=== PATIENT | female | born 1995 | race Caucasian/White ===

== ENCOUNTER 2023-11-13 11:22 | Outpatient (AMB) | payer OTHER, SELFPAY ==
--- NOTE | 2023-11-13 11:41 | AM.OFFWIN_ITS ---
Intake Vital Signs 11/13/23 11:45 Weight 214 lb BP 130/90 H Blood Pressure Location Rt brachial Position Sitting Pulse 72 Pulse Source Pulse Oximeter Pulse Oximetry (%) 98 Oxygen Delivery Method Room Air Intake Visit Reasons: [employer] WC Rt knee Injury Intake Note: Patient here for right knee injury, she states she was bending down on the floor at work and when she stood up she heard a pop . Patient Tobacco Use Status: Never used Tobacco Allergies No Known Allergies Allergy (Verified 11/13/23 11:45) Do you need a note to return to daycare/school/sports/work: Yes HPI HPI Comments History of Present Illness Details This is a 28-year-old female who presented to the walk-in clinic today complaining of right knee pain. Patient states she was at work and bent over to pick something up and felt a ?pop? in her right knee upon standing up. Since then, patient has been complaining of lateral pain as well as knee swelling. She states the pain is worse with extension of the knee. She reports mild numbness going down her bravo. She does have a history of a meniscal repair. [facility] Social History Patient Tobacco Use Status: Never used Tobacco Review of Systems Const All systems reviewed & are unremarkable except as noted in HPI and below Reports no additional complaints Eyes Reports no additional complaints ENT Reports no additional complaints Card Reports no additional complaints Resp Reports no additional complaints GI Reports no additional complaints Reports no additional complaints Musc Reports no additional complaints Skin/Breast Reports system reviewed and no additional complaints, except as documented Neuro Reports no additional complaints Psych Reports no additional complaints Endo Reports no additional complaints Luis/Lymph Reports no additional complaints Aller/Immun Reports no additional complaints Physical Exam Vital Signs: Last Vital Signs Pulse 72 11/13/23 11:45 BP 130/90 H 11/13/23 11:45 Pulse Ox 98 11/13/23 11:45 Oxygen Delivery Method Room Air 11/13/23 11:45 Const Other: Vital signs reviewed. Constitutional: Non-toxic appearing. No acute distress. Well-developed and well-nourished. HEENT: Normocephalic and atraumatic. Skin: Warm and dry. No rashes or lesions noted. Neck: Full and painless range of motion. No cervical lymphadenopathy. Cardio: Regular rate. No lower extremity edema. No JVD. Pulmonary: No respiratory distress. No accessory muscle usage. Gastrointestinal: Soft, nontender, and nondistended in all 4 quadrants. Musculoskeletal: There is mild swelling and effusion of the right knee diffusely. Patient has tenderness to palpation of the lateral and medial joint lines of the right knee. No focal/bony tenderness to palpation. She has painful range of motion with flexion/extension of the right knee. Neuro: Alert and oriented x4. Cranial nerves 2-12 grossly intact. No focal deficits appreciated. Psych: Normal mood and affect. Assessment & Plan Assessment & Plan (1) Muscle strain of right knee: Code(s): S86.911A - Strain of unspecified muscle(s) and tendon(s) at lower leg level, right leg, initial encounter Plan This is a 28-year-old female who presented to the walk-in clinic complaining of right knee pain/swelling following an injury that occurred yesterday. Differential diagnoses includes sprain/strain versus fracture versus meniscal tear. An x-ray of the right knee was obtained, which was negative for acute bony abnormality. Patient was given a knee brace as well as an orthopedic referral for further evaluation with possible MRI to evaluate for ligamentous/tendinous or meniscal injury. Recommended rest/activity modification, ice to the area, elevation of the extremity, and continue with acetaminophen/ibuprofen for pain management as long as patient has no medical contraindications. Patient verbalized understanding and is agreeable with the plan. Orders: Referrals Orthopedics Referral S89.92XA - Unspecified injury of left lower leg, initial encounter Coding Level of Care Code New Pt Level 3 (70232) Diagnoses Muscle strain of right knee S86.911A
[2023-11-13 11:45] VITALS: BP 130/90; PULSE 72; O2SAT 98
== END 2023-11-13 16:09 | disposition home or self-care (01) ==
PROVIDERS: PCP Internal Medicine; Visit Provider Physician Assistant Medical
DX: S86.911A Strain of unspecified muscle(s) and tendon(s) at lower leg level, right leg, initial encounter (principal)
CPT/HCPCS: 99203

== ENCOUNTER 2023-11-13 12:27 | Outpatient (REF) | payer OTHER, SELFPAY ==
--- NOTE | ~2023-11-13 | XR_ITS ---
EXAMINATION: XR KNEE, RIGHT CLINICAL INFORMATION: Right knee pain. COMPARISON: None available. TECHNIQUE: Four views of the right knee. FINDINGS: No fracture or joint effusion. Alignment is anatomic. Joint spaces are maintained. No abnormal soft tissue calcification. XR/XR knee RT 4V IMPRESSION: Normal right knee.
== END 2023-11-13 12:28 | disposition home or self-care (01) ==
LOC: HO.HMGCX 12:27
PROVIDERS: Visit Provider Physician Assistant Medical
DX: M25.561 Pain in right knee (principal)
CPT/HCPCS: 73564

== ENCOUNTER 2023-11-19 13:56 | Outpatient (AMB) | payer OTHER, SELFPAY ==
--- NOTE | 2023-11-19 14:23 | A.OFFVIS_ITS ---
Intake Vital Signs 11/19/23 14:25 Height 5 ft 9.5 in Weight 315 lb BMI 45.8 Intake Visit Reasons: New Pt - Right Knee WC Injury Intake Note: Humble is a 28 year old female who presents today as a new patient with complaints of right knee pain. 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 She felt pain and had a slight limp but carried on working, she then was pushing a heavy food cart (~150lbs) and pressed off the right leg while on uneven ground. This increased her pain. The day after injury she was seen at the [facility] [place], where she was given a brace. She was also given a note returning her to work until her visit today. Hx of Meniscus repair , she was told that the tear was near the root and she would need to be cautious. Allergies No Known Allergies Allergy (Verified 11/19/23 14:31) HPI New Pt - Right Knee WC Injury HPI Details This is a 28 yo F with an ~ 2-year history of right menical repair. She describes a repair at or near the [facility]. She states she was doing well until this work related injury for which she presents today. 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 She felt pain and had a slight limp but carried on working, she then was pushing a heavy food cart (~150lbs) and pressed off the right leg while on uneven ground. This increased her pain. She now has painful medial sided pain with activity. [facility] Surgical History (Updated 11/19/23 @ 14:31 by Jo Lopez CMA) History of right knee surgery (~2014) Social History Patient Tobacco Use Status: Never used Tobacco Physical Exam Vital Signs: BMI result Body Mass Index 45.8 Const General: cooperative, healthy appearing, no acute distress, well developed and alert HEENT Head: Yes normal to inspection, Yes normocephalic and Yes atraumatic Mouth: moist mucous membranes Eyes General: appearance normal, both eyes and all related structures EOM: EOMs intact bilaterally Chest Other: no audible wheezing. Resp Other: No audible wheezing Effort & Inspection: normal respiratory effort Back/Spine/Pelvis Cervical Spine: normal cervical lordosis Skin General skin exam: no rashes or lesions noted Neuro General: no focal motor deficits Extrem Other: Right knee with no effusion + medial Steinmen's TTP medial joint line Stable to varus and valgus stress Psych Appearance: grossly normal and well kempt Mental Status: mental status grossly normal Speech and movement: Normal speech and movement present Affect: normal affect Attitude: cooperative Results Reviewed Results Reviewed: I personally reviewed relevant radiographs. Nl right knee radiographs Assessment & Plan Assessment & Plan (1) Derangement of unspecified medial meniscus due to old tear or injury, unspecified knee: Code(s): M23.205 - Derangement of unspecified medial meniscus due to old tear or injury, unspecified knee Plan: This is a 28 yo F with a history of prior meniscal repair who sustained a twisting injury at work and hears a pop. She has since been unable to return to her prior level of activity and has pain with twisting. I recommend MRI to assess. She should remain out of work until further notice. I ordered an MRI today. She will return to see me after that is complete. (2) Right knee injury: Code(s): S89.91XA - Unspecified injury of right lower leg, initial encounter Plan Diagnosis #1: Derangement of unspecified medial meniscus due to old tear or injury, unspecified knee ICD 10 #1: M23.?205 Diagnosis#2: Internal Derangement of the Right Knee ICD 10 #2: M23.91 MRI Out of work Orders: Orders MR knee RT wo con Today M23.205 - Derangement of unspecified medial meniscus due to old tear or injury, unspecified knee, S89.91XA - Unspecified injury of right lower leg, initial encounter Coding Level of Care Code New Pt Level 4 (92366) Diagnoses Derangement of unspecified medial meniscus due to old tear or injury, unspecified knee M23.205 Right knee injury S89.91XA
[2023-11-19 14:25] VITALS: BMI 45.8
== END 2023-11-19 15:04 | disposition home or self-care (01) ==
PROVIDERS: PCP Internal Medicine; Visit Provider Orthopaedic Surgery
DX: M23.200 Derangement of unspecified lateral meniscus due to old tear or injury, right knee (principal); S89.91XA Unspecified injury of right lower leg, initial encounter
CPT/HCPCS: 99203

== ENCOUNTER → 2023-11-19 13:56 | Outpatient (BNVA) | payer OTHER, SELFPAY | PROVIDERS: PCP Internal Medicine; Visit Provider Orthopaedic Surgery | DX: M23.203 Derangement of unspecified medial meniscus due to old tear or injury, right knee (principal); S89.91XA Unspecified injury of right lower leg, initial encounter; Z98.890 Other specified postprocedural states; X58.XXXA Exposure to other specified factors, initial encounter; Y93.9 Activity, unspecified; Y92.9 Unspecified place or not applicable; Y99.0 Civilian activity done for income or pay | CPT/HCPCS: 99202 ==

== ENCOUNTER → 2023-12-10 14:13 | Outpatient (BNVA) | payer OTHER, SELFPAY | PROVIDERS: PCP Internal Medicine; Visit Provider Orthopaedic Surgery ==

== ENCOUNTER 2023-12-10 19:39 | Outpatient (REF) | payer OTHER, SELFPAY ==
--- NOTE | ~2023-12-10 | MR_ITS ---
EXAMINATION: MR KNEE WITHOUT CONTRAST, RIGHT CLINICAL INFORMATION: Injury of right lower leg. COMPARISON: X-ray of right knee November 13, 2023. TECHNIQUE: MRI of the knee without contrast was performed using routine sequences on a high-field scanner. FINDINGS: MENISCI: Medial Meniscus: Intact. Lateral Meniscus: Intact. LIGAMENTS: Cruciate: Intact. Collateral: Intact. EXTENSOR MECHANISM: Intact. ARTICULAR CARTILAGE/BONE: Patellofemoral Compartment: Normal. Medial Compartment: Minimal subchondral edema in the lateral weightbearing medial femoral condyle. Overlying cartilage intact. Findings could reflect subtle bone contusion Lateral Compartment: Normal. JOINT FLUID AND BURSAE: Normal. MR/MR knee RT wo con IMPRESSION: Possible subtle bone contusion in the medial femoral condyle.
== END 2023-12-10 19:40 | disposition home or self-care (01) ==
LOC: HO.MRI 19:39
PROVIDERS: PCP Internal Medicine; Visit Provider Orthopaedic Surgery
DX: S89.91XA Unspecified injury of right lower leg, initial encounter (principal); M23.205 Derangement of unspecified medial meniscus due to old tear or injury, unspecified knee
CPT/HCPCS: 73721

== ENCOUNTER 2023-12-21 13:22 | Outpatient (AMB) | payer OTHER, SELFPAY ==
--- NOTE | 2023-12-21 13:26 | A.OFFVIS_ITS ---
Vital Signs 12/21/23 13:29 Height 5 ft 9.5 in Weight 315 lb BMI 45.8 Intake Visit Reasons: OV - Right Knee MRI Review Intake Note: Mireille is a 28 year old female who presents today for an MRI review of her right knee. MRI done 12/10/23: IMPRESSION: Possible subtle bone contusion in the medial femoral condyle. Allergies No Known Allergies Allergy (Verified 12/21/23 13:31) HPI HPI OV - Right Knee MRI Review: Details: Mireille is a 28 year old female who presents today for an MRI review of her right knee. She still describes discomfort but it is improving. COUNTS INCLUDE 234 BEDS AT THE [facility] Surgical History History of right knee surgery (~2014) Social History Patient Tobacco Use Status: Never used Tobacco Physical Exam Vital Signs: BMI result Body Mass Index 45.8 Extrem Other: No effussion TTP medial compartment, improved from prior Neg Steinmen's Full ROM Results Reviewed Results Reviewed: I personally reviewed the MR images. MRI done 12/10/23: IMPRESSION: Possible subtle bone contusion in the medial femoral condyle. Otherwise unremarkable Assessment & Plan Assessment & Plan (1) Contusion of bone: Code(s): T14.8XXA - Other injury of unspecified body region, initial encounter Category: Medical Plan: Bone contusion right knee. She is improving but she is still not ready for [employer] work. She may return to sedentary work. f/u 6 weeks Coding Level of Care Code Est Pt Level 4 (75391) Diagnoses Contusion of bone T14.8XXA
[2023-12-21 13:29] VITALS: BMI 45.8
== END 2023-12-21 13:48 | disposition home or self-care (01) ==
LOC: HO.HOS 13:23
PROVIDERS: PCP Internal Medicine; Visit Provider Orthopaedic Surgery
DX: S80.01XA Contusion of right knee, initial encounter (principal); T14.8XXA Other injury of unspecified body region, initial encounter
CPT/HCPCS: 99213

== ENCOUNTER → 2023-12-21 13:23 | Outpatient (BNVA) | payer OTHER, SELFPAY | PROVIDERS: PCP Internal Medicine; Visit Provider Orthopaedic Surgery | DX: S80.01XA Contusion of right knee, initial encounter (principal) | CPT/HCPCS: 99212 ==

== ENCOUNTER 2024-02-01 11:55 | Outpatient (AMB) | payer OTHER, SELFPAY ==
--- NOTE | 2024-02-01 12:07 | MHC.OFFVIS ---
Intake Visit Reasons: OV-right knee follow up Allergies No Known Allergies Allergy (Verified 12/21/23 13:31) HPI HPI OV-right knee follow up: Details: Mireille is a 28 year old female who presents today for a follow up of her right knee bone contusion. 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 Patient reports that she is doing well, she has some pain with prolonged walking (2hrs) and certain movements. When up for long periods of time the knee is swelling but she utilized ice which helps. [facility] Surgical History History of right knee surgery (~2014) Social History Patient Tobacco Use Status: Never used Tobacco Physical Exam Extrem Other: No effussion TTP medial compartment, improved from prior Neg Steinmen's Full ROM Assessment & Plan Assessment & Plan (1) Contusion of bone: Code(s): T14.8XXA - Other injury of unspecified body region, initial encounter Category: Medical Plan: Improving. May return to work without restrictions. Coding Level of Care Code Est Pt Level 3 (12710) Diagnoses Contusion of bone T14.8XXA
== END 2024-02-01 12:17 | disposition home or self-care (01) ==
PROVIDERS: PCP Internal Medicine; Visit Provider Orthopaedic Surgery
DX: T14.8XXA Other injury of unspecified body region, initial encounter (principal)
CPT/HCPCS: 99212

== ENCOUNTER → 2024-02-01 11:55 | Outpatient (BNVA) | payer OTHER, SELFPAY | PROVIDERS: PCP Internal Medicine; Visit Provider Orthopaedic Surgery | DX: S80.01XA Contusion of right knee, initial encounter (principal); X58.XXXA Exposure to other specified factors, initial encounter; Y93.9 Activity, unspecified; Y92.9 Unspecified place or not applicable; Y99.9 Unspecified external cause status | CPT/HCPCS: 99212 ==

== ENCOUNTER 2024-02-15 10:19 | Outpatient (AMB) | payer OTHER, SELFPAY ==
[2024-02-15 10:19] VITALS: BP 110/70; PULSE 107; TEMP 36.1; O2SAT 98; BMI 46.6
--- NOTE | 2024-02-15 10:19 | AM.OFFWIN_ITS ---
Intake Vital Signs 02/15/24 10:19 Height 5 ft 9.5 in Weight 320 lb BMI 46.6 BP 110/70 Blood Pressure Location Lt brachial Position Sitting Pulse 107 H Pulse Source Pulse Oximeter Temp 97.0 F Temp Source Temporal Artery Scan Pulse Oximetry (%) 98 Oxygen Delivery Method Room Air Intake Visit Reasons: EP Knee pain Intake Note: pt is here today for knee pain started thursday Patient Tobacco Use Status: Never used Tobacco Allergies No Known Allergies Allergy (Verified 02/15/24 10:35) Do you need a note to return to daycare/school/sports/work: Yes HPI HPI Comments History of Present Illness Details Patient is a 28-year-old female complaining of left knee pain x2 days. She states she might have hyperextended it on Thursday; she denies any injury. She states she can hear a pop now and then and it is definitely swollen. She has a history of a meniscus tear in her right knee but has never injured her left knee. She has been putting ice on it with some relief. She is able to walk on it although gingerly. [facility] Surgical History History of right knee surgery (~2014) Social History Patient Tobacco Use Status: Never used Tobacco Review of Systems Const All systems reviewed & are unremarkable except as noted in HPI and below Physical Exam Vital Signs: Last Vital Signs Temp 97.0 F 02/15/24 10:19 Pulse 107 H 02/15/24 10:19 BP 110/70 02/15/24 10:19 Pulse Ox 98 02/15/24 10:19 Oxygen Delivery Method Room Air 02/15/24 10:19 BMI result Body Mass Index 46.6 Const General: cooperative, healthy appearing, comfortable, no acute distress and well developed Orientation/consciousness: patient oriented x3 Limitations: no limitations Eyes General: appearance normal, both eyes and all related structures Resp Effort & Inspection: normal respiratory effort and able to speak in complete sentences Neuro General: patient oriented x3 Extrem Left lower extremity: knee Details: tenderness, swelling, normal ROM (With pain) and knee ligament exam normal (Difficult to test as patient was in pain) Details: anterior drawer test normal, posterior drawer test normal, valgus stress test normal and varus stress test normal; no abrasions, no lacerations, no ecchymosis, no crepitus, no deformity and no unusual warmth Assessment & Plan Assessment & Plan (1) Left lateral knee pain: Code(s): M25.562 - Pain in left knee Plan: Knee x-ray negative for fracture, only showed an effusion. Likely that and ligament issue causing her pain, we will send referral to Orthopedics; also placed in a knee brace and gave her crutches. Plan see above Orders: Referrals Orthopedics Referral M25.562 - Pain in left knee Coding Level of Care Code Est Pt Level 4 (57720) Diagnoses Left lateral knee pain M25.562
== END 2024-02-15 11:25 | disposition home or self-care (01) ==
PROVIDERS: PCP Internal Medicine; Visit Provider Physician Assistant
DX: M25.562 Pain in left knee (principal); S83.502A Sprain of unspecified cruciate ligament of left knee, initial encounter
CPT/HCPCS: 99213

== ENCOUNTER 2024-02-15 11:26 | Outpatient (REF) | payer OTHER, SELFPAY ==
--- NOTE | ~2024-02-15 | XR_ITS ---
EXAMINATION: XR KNEE, LEFT CLINICAL INFORMATION: Pain of left knee COMPARISON: None available. TECHNIQUE: Four views of the left knee. FINDINGS: Bones have normal alignment and joint spaces are maintained. No arthritic deformity. No fracture or subluxation. There appears to be mild fluid distention of the suprapatellar compartment of the knee joint. No intra-articular osteochondral body. XR/XR knee LT 4V IMPRESSION: Nonspecific knee joint effusion. Otherwise, soft tissues, bones and joints are unremarkable.
== END 2024-02-15 11:27 | disposition home or self-care (01) ==
LOC: HO.HMGCX 11:26
PROVIDERS: PCP Internal Medicine; Visit Provider Physician Assistant
DX: M25.562 Pain in left knee (principal)
CPT/HCPCS: 73564

== ENCOUNTER 2024-02-19 10:06 | Outpatient (AMB) | payer OTHER, SELFPAY ==
[2024-02-19 10:07] VITALS: BP 118/72; PULSE 143; TEMP 36.4; O2SAT 98; BMI 45.7
--- NOTE | 2024-02-19 10:07 | AM.OFFWIN_ITS ---
Intake Vital Signs 3 02/19/24 10:07 02/19/24 10:26 Height 5 ft 9.5 in Weight 314 lb BMI 45.7 BP 118/72 Blood Pressure Location Lt brachial Position Sitting Pulse 143 H 104 H Pulse Source Pulse Oximeter Temp 97.6 F Temp Source Temporal Artery Scan Pulse Oximetry (%) 98 Oxygen Delivery Method Room Air Intake Visit Reasons: EP-Left Knee pain/swelling Intake Note: pt is here today for lft knee pain swelling started thursday Patient Tobacco Use Status: Never used Tobacco Allergies No Known Allergies Allergy (Verified 02/19/24 10:12) Medication List - Last Reconciled 02/19/24 by Lyric Dow MD No Known Home Meds Do you need a note to return to daycare/school/sports/work: Yes HPI EP-Left Knee pain/swelling 2 HPI0 Details Patient is 28-year-old morbidly obese patient came in today to be evaluated for pain left knee Reviewing her chart I see that she had pain in her right knee early this year, and had MRI of right knee done through orthopedic Which showed contusion of bone. She was evaluated for this problem on of this month and had x-ray done Left knee x-ray done on showed Nonspecific knee joint effusion. Otherwise, soft tissues, bones and joints are unremarkable. 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 Letter provided For pain she is currently taking ibuprofen and Tylenol. COUNTS INCLUDE 234 BEDS AT THE [facility] Surgical History History of right knee surgery (~2014) Social History Patient Tobacco Use Status: Never used Tobacco Review of Systems Const All systems reviewed & are unremarkable except as noted in HPI and below Physical Exam Vital Signs: Last Vital Signs Temp 97.6 F 06/21/24 10:07 Pulse 143 H 02/19/24 10:07 BP 118/72 02/19/24 10:07 Pulse Ox 98 02/19/24 10:07 Oxygen Delivery Method Room Air 02/19/24 10:07 BMI result Body Mass Index 45.7 Const General: no acute distress Orientation/consciousness: patient oriented x3 Eyes General: appearance normal, both eyes and all related structures Resp Effort & Inspection: normal respiratory effort and able to speak in complete sentences Neuro General: patient oriented x3 Extrem Elbow/forearm/wrist images: 2 1. Limited range of motion secondary to pain, knee brace on, knee swelling present Psych Mental Status: mental status grossly normal Assessment & Plan Assessment & Plan (1) Effusion, left knee: Code(s): M25.462 - Effusion, left knee (2) Left lateral knee pain: Code(s): M25.562 - Pain in left knee (3) Restricted work performance: Code(s): Z56.89 - Other problems related to employment Plan Patient is 28-year-old morbidly obese patient came in today to be evaluated for pain left knee Reviewing her chart I see that she had pain in her right knee early this year, and had MRI of right knee done through orthopedic Which showed contusion of bone. She was evaluated for this problem on of this month and had x-ray done Left knee x-ray done on showed Nonspecific knee joint effusion. Otherwise, soft tissues, bones and joints are unremarkable. 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 Letter provided For pain she is currently taking ibuprofen and Tylenol. Coding Level of Care Code Est Pt Level 4 (92852) Diagnoses Effusion, left knee M25.462 Left lateral knee pain M25.562 Restricted work performance Z56.89
[2024-02-19 10:26] VITALS: PULSE 104
== END 2024-02-19 10:58 | disposition home or self-care (01) ==
PROVIDERS: PCP Internal Medicine; Visit Provider Internal Medicine
DX: M25.462 Effusion, left knee (principal); M25.562 Pain in left knee; Z56.89 Other problems related to employment
CPT/HCPCS: 99214

== ENCOUNTER 2024-03-07 10:02 | Outpatient (AMB) | payer OTHER, SELFPAY ==
[2024-03-07 10:03] VITALS: BMI 44.8
--- NOTE | 2024-03-07 10:03 | A.OFFVIS_ITS ---
Vital Signs 03/07/24 10:03 Height 5 ft 9.5 in Weight 308 lb BMI 44.8 Intake Visit Reasons: Newprob-Left knee pain Intake Note: Mireille is a 29 year old female who presents today for a new problem visit with complaints of left knee pain. Patient reports on 02/13/24 she was pushing a cart that is 250 plus lbs into an elevator hyper extended her leg, immediate pain and swelling. She kept working her shift because there was no one she could report the incident to and woke up the next day unable to bear weight on the left knee. She worked her next shift limping on the left leg but she was elevating and icing it while working. on 02/15/24 she [place] [facility] [place] took x[place], gave her crutches, a knee brace and advised her to follow up with Orthopedics. She returned to work on 03/01/24 with no pushing heavy carts as a restriction, it seemed fine at first but the pain and swelling gradually worsened. She expresses her knee has been swollen since the incident and noticed today it is starting to go down. She has tried ice, ibuprofen, and elevation with minimal relief and minimal swelling. She describes popping in her patella tendon and noticed for the first 2 and a half weeks she was unable to flex and extended fully as well as numbness and tingling with palpitation in the upper anterior aspect of her knee where her swelling is mainly occurring. She is having most tension when she is on the balls of her feet with standing, ambulation and has inability to sit down with legs crossed. Allergies No Known Allergies Allergy (Verified 03/07/24 10:13) HPI HPI Newprob-Left knee pain: Details: Mireille is a 29 year old female who presents today for a new problem visit with complaints of left knee pain. Patient reports on 02/13/24 she was pushing a cart that is 250 plus lbs into an elevator hyper extended her leg, immediate pain and swelling. She kept working her shift because there was no one she could report the incident to and woke up the next day unable to bear weight on the left knee. She worked her next shift limping on the left leg but she was elevating and icing it while working. on 02/15/24 she was [place] [facility] [place] where they took x-rays, gave her crutches, a knee brace and advised her to follow up with Orthopedics. She returned to work on 03/01/24 with no pushing heavy carts as a restriction, it seemed fine at first but the pain and swelling gradually worsened. She expresses her knee has been swollen since the incident and noticed today it is starting to go down. She has tried ice, ibuprofen, and elevation with minimal relief and minimal swelling. She describes popping in her patella tendon and noticed for the first 2 and a half weeks she was unable to flex and extended fully as well as numbness and tingling with palpitation in the upper anterior aspect of her knee where her swelling is mainly occurring. She is having most tension when she is on the balls of her feet with standing, ambulation and has inability to sit down with legs crossed. [facility] Surgical History History of right knee surgery (~2014) Social History Patient Tobacco Use Status: Never used Tobacco Current occupational status: employed Current occupation: [employer] Physical Exam Vital Signs: BMI result Body Mass Index 44.8 Extrem Other: left knee with retropatellar TTP and no effusion. + step down test Assessment & Plan Assessment & Plan (1) Patellofemoral joint pain: Code(s): M25.569 - Pain in unspecified knee Category: Medical Plan: Left knee PF pain improving. PT, Sleeve, NSAIDs. Will modify activity at work. Coding Level of Care Code Est Pt Level 3 (79557) Diagnoses Patellofemoral joint pain M25.569
== END 2024-03-07 10:42 | disposition home or self-care (01) ==
PROVIDERS: PCP Internal Medicine; Visit Provider Orthopaedic Surgery
DX: M25.562 Pain in left knee (principal)
CPT/HCPCS: 99213

== ENCOUNTER → 2024-03-07 10:02 | Outpatient (BNVA) | payer OTHER, SELFPAY | PROVIDERS: PCP Internal Medicine; Visit Provider Orthopaedic Surgery | DX: M25.562 Pain in left knee (principal) | CPT/HCPCS: 99212 ==

== ENCOUNTER 2024-04-21 08:59 | Outpatient (AMB) | payer OTHER, SELFPAY ==
--- NOTE | 2024-04-21 09:11 | A.OFFVIS_ITS ---
Vital Signs 04/21/24 09:12 Height 5 ft 9.5 in Weight 308 lb BMI 44.8 Intake Visit Reasons: OV-Left knee pain Intake Note: Mireille is a 29 year old female who presents to the office today for a follow up of her left knee patellofemoral joint pain. Patient reports on 02/13/24 she was pushing a cart that is 250 plus lbs into an elevator hyper extended her leg, immediate pain and swelling. Patient reports that she is feeling a sharp pain at the base of the patella when she stands up on the ball of her foot. She feels that the knee is going to give out on her and the patella is shifting and cracking. She has pain in the superior aspect of the patella with squatting. She has been wearing the brace only feels that it has been mildly helpful She did not hear from PT so she has not started - there was no PT order placed for her She is currently on light duty with no pushing carts. Allergies No Known Allergies Allergy (Verified 04/21/24 09:15) HPI HPI OV-Left knee pain: Details: Mireille is a 29 year old female who presents to the office today for a follow up of her left knee patellofemoral joint pain. Patient reports on 02/13/24 she was pushing a cart that is 250 plus lbs into an elevator hyper extended her leg, immediate pain and swelling. Patient reports that she is feeling a sharp pain at the base of the patella when she stands up on the ball of her foot. She feels that the knee is going to give out on her and the patella is shifting and cracking. She has pain in the superior aspect of the patella with squatting. She has been wearing the brace only feels that it has been mildly helpful She is currently on light duty with no pushing carts. ON LICENSE OF [facility] Surgical History History of right knee surgery (~2014) Social History Patient Tobacco Use Status: Never used Tobacco Current occupational status: employed Current occupation: [employer] Physical Exam Vital Signs: BMI result Body Mass Index 44.8 Extrem Other: left knee with retropatellar TTP and no effusion. + step down test ttp tibial tubercle no pain with resited knee extnsion Assessment & Plan Assessment & Plan (1) Patellar tendinitis, left knee: Code(s): M76.52 - Patellar tendinitis, left knee Category: Medical Plan: Patellar tendonitis with no improvements with R.I.C.E. PT ordered. No cart pushing thisat work. Are pushing at work I ordered continue Orders: Orders PT Evaluation and Treatment Today M76.52 - Patellar tendinitis, left knee Coding Level of Care Code Est Pt Level 3 (52257) Diagnoses Patellar tendinitis, left knee M76.52
[2024-04-21 09:12] VITALS: BMI 44.8
== END 2024-04-21 09:26 | disposition home or self-care (01) ==
PROVIDERS: PCP Internal Medicine; Referring Provider Internal Medicine; Visit Provider Orthopaedic Surgery
DX: M76.52 Patellar tendinitis, left knee (principal)
CPT/HCPCS: 99213

== ENCOUNTER → 2024-04-21 08:59 | Outpatient (BNVA) | payer OTHER, SELFPAY | PROVIDERS: PCP Internal Medicine; Visit Provider Orthopaedic Surgery | DX: M76.52 Patellar tendinitis, left knee (principal) | CPT/HCPCS: 99212 ==

== ENCOUNTER 2024-06-02 09:17 | Outpatient (AMB) | payer OTHER, SELFPAY ==
[2024-06-02 09:30] VITALS: BMI 44.8
--- NOTE | 2024-06-02 09:30 | A.OFFVIS_ITS ---
Vital Signs 06/02/24 09:30 Height 5 ft 9.5 in Weight 308 lb BMI 44.8 Intake Visit Reasons: OV-Left knee pain Intake Note: Mireille is a 29 year old female who presents today for a follow up of her left knee pain. 02/13/24 she was pushing a cart that is 250 plus lbs into an elevator hyper extended her leg, immediate pain and swelling. At her last visit on 04/21/24 she was given a work note allowing her to return to work with no cart pushing, and PT was ordered. Patient reports that she is feeling about the same, after any period of sitting she feels that the knee locks up and causes her to limp when she gets up. She has been working with PT which has helped her with walking. In PT she can fully extend the knee wiht no problems but when she lowers the leg to flexion she experinces pain and a rippling feeling. She is unable to squat down as it is very painful. Physical therapy is suggesting an MRI for continued symptoms and a crooked patella. Allergies No Known Allergies Allergy (Verified 04/21/24 09:15) HPI HPI OV-Left knee pain: Details: Mireille is a 29 year old female who presents today for a follow up of her left knee pain. 02/13/24 she was pushing a cart that is 250 plus lbs into an elevator hyper extended her leg, immediate pain and swelling. At her last visit on 04/21/24 she was given a work note allowing her to return to work with no cart pushing, and PT was ordered. Patient reports that she is feeling about the same, after any period of sitting she feels that the knee locks up and causes her to limp when she gets up. She has been working with PT which has helped her with walking. In PT she can fully extend the knee wiht no problems but when she lowers the leg to flexion she experinces pain and a rippling feeling. She is unable to squat down as it is very painful. Physical therapy is suggesting an MRI for continued symptoms and a crooked patella. [facility] Surgical History History of right knee surgery (~2014) Social History Patient Tobacco Use Status: Never used Tobacco Current occupational status: employed Current occupation: [employer] Physical Exam Vital Signs: BMI result Body Mass Index 44.8 Extrem Other: left knee with retropatellar TTP trace effusion. + step down test ttp tibial tubercle no pain with resited knee extnsion Results Reviewed Results Reviewed: I personally reviewed relevant radiographs. Left knee radiographs are unremarkable Assessment & Plan Assessment & Plan (1) Effusion, left knee: Code(s): M25.462 - Effusion, left knee Category: Medical Plan: This is a 29-year-old woman who is 4 months status post work [address] injury. We have tried physical therapy and tried for return to work but she still can not tolerate this. She is having a question of mechanical symptoms and pain. I recommend an MRI of her left knee. She should continue light duty with no car pushing until follow-up. Orders: Orders MR knee LT wo con Today M25.462 - Effusion, left knee Coding Level of Care Code Est Pt Level 3 (99002) Diagnoses Effusion, left knee M25.462
== END 2024-06-02 09:53 | disposition home or self-care (01) ==
PROVIDERS: PCP Internal Medicine; Visit Provider Orthopaedic Surgery
DX: M25.462 Effusion, left knee (principal); Z04.2 Encounter for examination and observation following work accident
CPT/HCPCS: 99213

== ENCOUNTER → 2024-06-02 09:17 | Outpatient (BNVA) | payer OTHER, SELFPAY | PROVIDERS: PCP Internal Medicine; Visit Provider Orthopaedic Surgery | DX: M25.462 Effusion, left knee (principal) | CPT/HCPCS: 99212 ==

== ENCOUNTER 2024-06-14 08:00 | Outpatient (RCR) | payer OTHER, SELFPAY ==
--- NOTE | 2024-05-20 08:58 | MHC.PT.EP ---
[facility] [place] Office [place] Office [place] Office [address] Gabriele Sevilla [address] [phone] F: [phone] F: [phone] F: [phone] F: [phone] Physical Therapy Plan of Care Date of Evaluation: 05/20/24 Date of Surgery: Diagnosis: This is a 29 yo female presenting to skilled PT with a script for patellar tendonitis of L knee. Assessment: This is a 29 yo female presenting to skilled PT with a script for patellar tendonitis of L knee. Patient is being referred from [facility]. Patient reports on 02/13/24 she was pushing a heavy cart into an elevator when the cart came backwards and hyper extended her L leg. She had immediate pain, could not bend it or fully extend it and had trouble with weightbearing. Pain has improved some since then. Pain increases now with walking, standing, sitting too long, stairs, bending and straightening. She gets stiff when sitting for prolonged periods of time and has no pain without movement however movement does seem to help alleviate her pain at times. Pain is described as like its going to dislocate , sharp, stabbing. Occasional popping, catching is noted. She does endorse instability, buckling at times. Pain can be posterior knee, lateral thigh and lateral lower leg. She has tried a brace, ice and ibuprofen. Of note, this injury started 2 weeks after she had returned to work after injuring the R. Assessment reveals pain that ranges from up to a 10/10 at the worst. Patient demos decreased L knee and ankle ROM, strength of L hip and knee, TTP patella tendon, lateral thigh and lower leg and medial joint line, decreased gait pattern and balance due to pain and functional limitations, decreased patella movement with lateral tilt noted and impaired posture with forward head and rounded shoulders. Based on functional limitations, impaired QOL and pain tolerance patient is a good candidate for skilled PT 2x/wk for 4wks. Frequency and Duration: The patient will be seen 2x/wk for 4wks Short Term Goals: (in 2 weeks) Patient will improve knee AROM by at least 10 degs without assist Patient will demo good undestanding and performance of quad set in multiple different planes without cues from PT Patient will be I in [facility] Goals: (in 4 weeks) Patient will report 75% improvement in balance and strength of LLE as evidenced by reports no of falls or buckling in LE Patient will improve LEFs by 10 points Patient will demo WFL AROM of knee and ankle Patient will demo proper squat and lift techniques without increase in pain Patient will return to work in full Treatment Plan: Modalities to reduce pain, spasms and effusion. Manual therapy to restore motion and function. Therapeutic exercise to improve strength and flexibility. Neuromuscular re-education for posture and balance. Therapeutic activities to return to functional activities of daily living. Electronically signed by: Charlene Patton PT Please sign and return to therapist. Thank you for your referral.
--- NOTE | 2024-07-18 11:10 | MHC.PT.DC ---
[facility] [place] Office [place] Office [place] Office [address] Gabriele Sevilla [address] [facility] [phone] F: [phone] F: [phone] F: [phone] F: [phone] Physical Therapy Discharge Report Diagnosis: This is a 29 yo female presenting to skilled PT with a script for patellar tendonitis of L knee. Date of Surgery: Date of Evaluation: 05/20/24 Date of Discharge: 07/18/24 Treatments to Date: 8 Cancellations to Date: 0 No Shows to Date: 0 Discharge Status: Patient Elected to Stop Recommend MD Follow-up Discharge Summary: Patient came in with more pain at her last scheduled appointment. She stated that the last time she was here she heard a pop with heel slides and quad sets and since then she has had more pain and swelling. We talked about putting PT on hold due to continue symptoms. She is awaiting an MRI. Chart was closed after not being at our facility in 30 days. DC back to referring provider due to continuation of pain/symptoms. Electronically signed by: Charlene Patton PT Please sign and return to therapist. Thank you for your referral.
== END 2024-07-18 11:10 | disposition home or self-care (01) ==
LOC: HO.PTCHIC 08:00
PROVIDERS: PCP Internal Medicine; Visit Provider Orthopaedic Surgery
DX: M76.52 Patellar tendinitis, left knee (principal)
CPT/HCPCS: 97110; 97140; 97161

== ENCOUNTER 2024-06-28 18:55 | Outpatient (REF) | payer OTHER, SELFPAY ==
--- NOTE | ~2024-06-28 | MR_ITS ---
EXAMINATION: MR KNEE WITHOUT CONTRAST, LEFT CLINICAL INFORMATION: Left knee pain, swelling, numbness. Instability. Effusion. COMPARISON: Left knee radiographs dated 02/15/2024. TECHNIQUE: MRI of the knee without contrast was performed using routine sequences on a high-field scanner. FINDINGS: MENISCI: Medial Meniscus: Mild medial extrusion of the meniscal body. Edema along the periphery of the posterior horn which could represent a nondisplaced meniscocapsular injury or be related to the joint effusion. No articular surface tear. Lateral Meniscus: Focal oblique inner margin tear of the anterior root (sagittal image 21/32). LIGAMENTS: Cruciate: Intact Collateral: Intact EXTENSOR MECHANISM: Intact ARTICULAR CARTILAGE/BONE: Patellofemoral Compartment: Intact articular cartilage. Medial Compartment: Full-thickness articular cartilage loss at the weightbearing medial tibial plateau measuring up to 1.8 x 1.5 cm (AP x ML). Marrow edema within the medial femoral condyle and medial tibial plateau which could represent osseous contusions. No associated fracture line. Lateral Compartment: Intact articular cartilage. JOINT FLUID AND BURSAE: Hjocu-sv-mdscjcms joint effusion. Posterior loose body adjacent to the lateral joint space measuring up to 1.4 cm in ML dimension. MR/MR knee LT wo con IMPRESSION: 1. Mild medial extrusion of the medial meniscal body. Edema along the periphery of the posterior horn which could represent a nondisplaced meniscocapsular injury or be related to the joint effusion. No articular surface meniscal tear. 2. Focal oblique inner margin tear of the lateral meniscus anterior root. 3. Full-thickness articular cartilage loss at the weightbearing medial tibial plateau measuring up to 1.8 x 1.5 cm. Marrow edema within the medial femoral condyle and medial tibial plateau which could represent osseous contusions. No associated fracture line. 4. Ahovr-ct-mesjtblh joint effusion. Posterior loose body measuring up to 1.4 cm. Electronically signed by: Dominick Abarca MD 07/16/2024 11:55 AM [facility]
== END 2024-06-28 18:56 | disposition home or self-care (01) ==
LOC: HO.MRI 18:55
PROVIDERS: PCP Internal Medicine; Visit Provider Orthopaedic Surgery
DX: M25.462 Effusion, left knee (principal)
CPT/HCPCS: 73721

== ENCOUNTER 2024-07-14 13:11 | Outpatient (AMB) | payer OTHER, SELFPAY ==
--- NOTE | 2024-07-14 13:12 | A.OFFVIS_ITS ---
Intake Visit Reasons: OV - Left Knee MRI Review Intake Note: Mireille is a 29 year old female who presents today for an MRI review of her left knee. MRI done 06/28/24 - Report not yet available (07/08/24). she was pushing a cart that is 250 plus lbs into an elevator hyper extended her leg, immediate pain and swelling. She remains on light duty with no cart pushing. MRI not yet read Allergies No Known Allergies Allergy (Verified 04/21/24 09:15) HPI HPI OV - Left Knee MRI Review: Details: Mireille is a 29 year old female who presents today for an MRI review of her left knee. MRI done 06/28/24 - Report not yet available (07/08/24). she was pushing a cart that is 250 plus lbs into an elevator hyper extended her leg, immediate pain and swelling. She remains on light duty with no cart pushing. She continues to have pain that wakes her up at night and cause her difficulty walking. She can not walk for more than few minutes without discomfort. [facility] Surgical History History of right knee surgery (~2014) Social History Patient Tobacco Use Status: Never used Tobacco Current occupational status: employed Current occupation: [employer] Physical Exam Extrem Other: left knee with retropatellar TTP trace effusion. + step down test ttp tibial tubercle no pain with resited knee extnsion Office Procedures Joint Inj/Aspir; Non-Pain Clin Joint Injection/Drain Details: Injected 1 mL of Decadron and 3 mL 1% lidocaine and 3 mL of 0.25% Marcaine. Site was prepped using aseptic technique. Patient tolerated the procedure well. Shoulders, Hips, Knees, Knee Large Joint Injection 01911: Left Knee Coding Procedure code (CPT) selection complete Results Reviewed Results Reviewed: I personally reviewed the MR images. There is cartilage injury to the medial femoral condyle with moderate bony edema. There is a small intrasubstance posteromedial meniscus tear Assessment & Plan Assessment & Plan (1) Chondromalacia of medial femoral condyle: Code(s): M94.269 - Chondromalacia, unspecified knee Category: Medical Plan: This is a 29-year-old with a cartilage lesion of the medial femoral condyle left knee. This is not subtle and there is a bony contusion. I injected her left knee. I recommend she continue activity as tolerated and see me back in mary jo roximately 3 months. Coding Level of Care Code Est Pt Level 4 (92793) Diagnoses Chondromalacia of medial femoral condyle M94.269 CPT Codes Shoulders, Hips, Knees, - Knee Large Joint Injection : Left Knee ([id number])
== END 2024-07-14 15:23 | disposition home or self-care (01) ==
PROVIDERS: PCP Internal Medicine; Visit Provider Orthopaedic Surgery
DX: M94.262 Chondromalacia, left knee (principal)
CPT/HCPCS: 20610; 99213

== ENCOUNTER → 2024-07-14 13:11 | Outpatient (BNVA) | payer OTHER, SELFPAY | PROVIDERS: PCP Internal Medicine; Visit Provider Orthopaedic Surgery | DX: M94.262 Chondromalacia, left knee (principal) | CPT/HCPCS: 20610; 99212; J0665; J1100; J2003 ==

== ENCOUNTER 2024-08-28 16:52 | Emergency (ER) | payer OTHER, SELFPAY ==
--- NOTE | ~2024-08-28 | US_ITS ---
CLINICAL HISTORY: left calf and knee pain Venous duplex ultrasound left lower extremity Comparison: None Findings: The visualized deep veins are fully compressible with normal Doppler color flow and spectral tracings. Expected permanent vein is partly obscured. Imaged posterior tibial veins are patent. Contralateral (right) common femoral vein is patent. IMPRESSION: 1. Negative for left lower extremity deep vein thrombosis. 2. Expected left peroneal vein obscured. This document has been electronically signed by: Vazquez Omer MD on 08/28/2024 20:38:22
[2024-08-28 17:10] VITALS: BP 190/111; PULSE 113; RESP 20; TEMP 36.2; O2SAT 97; BMI 50.2
--- NOTE | 2024-08-28 17:12 | ED_ITS ---
HPI - Extremity Injury (Lower) General Chief Complaint: Extremity Injury, Lower Stated Complaint: ? L leg blood clot Time Seen by Provider: 08/28/24 21:25 Source: patient Limitations: no limitations History of Present Illness ED Provider: Tierra Cortez PA-C HPI Narrative: 29-year-old morbidly obese female with a history of bilateral knee pain, with numerous issues involving left knee including a meniscal tear, cartilage loss, loose bodies, joint effusion, prior DVT, presents with left lower extremity swelling. Patient states she strained the left knee 9 days ago. Since it has progressively become more swollen. The swelling originates superior to the left knee down to the ankle. Pain worse with movement. Denies redness or warmth of the knee. Denies inability to range the joint or fever. Related Data Home Medications ?Medication ?Instructions ?Recorded ?Confirmed acetaminophen 500 mg tablet 1,000 mg PO Q6H PRN 03/07/24 (Tylenol Extra Strength) ibuprofen 800 mg tablet 800 mg PO Q8H 03/07/24 Previous Rx's ?Medication ?Instructions ?Recorded meloxicam 15 mg tablet 15 mg PO DAILY PRN pain #7 tabs 08/29/24 Allergies Allergy/AdvReac Type Severity Reaction Status Date / Time No Known Allergies Allergy Verified 08/28/24 17:12 Review of Systems Review of Systems: Yes all other systems are reviewed and are negative Constitutional: Constitutional: Denies fatigue and Denies fever(s) Endocrine: Endocrine: Denies fatigue PMFSH Past Medical History Surgical History History of right knee surgery (~2014) Social History Social History Patient Tobacco Use Status: Never used Tobacco Smoked in Last 30 Days: No Advance Directives: No Advance Directives Information Provided: Yes Do you have a plan to hurt others: No Plan Patient : No Current occupational status: employed Current occupation: [employer] Physical Exam Vital Signs: Vital Signs: Last Vital Signs Temp 98.5 F 08/28/24 22:03 Pulse 105 H 08/28/24 22:03 Resp 16 08/28/24 22:03 BP 110/77 08/28/24 22:03 Pulse Ox 99 08/28/24 22:03 O2 Del Method Room Air 08/28/24 22:03 BMI result Body Mass Index 50.2 Const: Other: Alert, well-appearing Orientation/consciousness: patient oriented x3 Resp: Effort & Inspection: normal respiratory effort Cardio: Other: Normal peripheral perfusion Skin: Other: Warm dry no rash Neuro: General: patient oriented x3, no focal motor deficits and CN's II-XI intact bilaterally Extrem: Other: Left lower extremity is swollen when compared to the right, the patient can flex and extend from the knee there was no overlying erythema or warmth Psych: Other: Calm cooperative Course Course Course Narrative: This is a Rapid Medical Examination (RME) performed by Selina Gurrola PA-C in triage. Full HPI, ROS, assessment and treatment plan per primary provider in the Main ED. 29 yo female here for eval of left knee and left calf pain/ cramping after hyperextending her knee on 08/23. states the area is swollen. hx of ongoing knee issues - had MRI in May. hx DVT s/p 3 surgeries. not on AC. Plan: venous duplex Medical Decision Making Medical Decision Making [facility] Narrative: 29-year-old morbidly obese female with a history of bilateral knee pain, with numerous issues involving left knee including a meniscal tear, cartilage loss, loose bodies, joint effusion, prior DVT, presents with left lower extremity swelling. Patient states she strained the left knee 9 days ago. Since it has progressively become more swollen. The swelling originates superior to the left knee down to the ankle. Pain worse with movement. Denies redness or warmth of the knee. Denies inability to range the joint or fever. Problem: Morbid obesity and underlying known issues of the left knee History: Per patient I have considered the following differential diagnoses: Septic effusion, Marroquin cyst, DVT Plan: Ultrasound was ordered from triage, there was no clot. Patient has numerous reasons as to why she is having swelling within the extremity, she is aware of this. She had a recent MRI in May of this year, I can see the results. She wanted to rule out DVT. Sending with the meloxicam, I am offering other strategies to help manage her discomfort, with her habitus, intervention such as a compression sleeve or knee brace are not feasible. The patient will follow up with the orthopedist. I have independently reviewed the following tests: Ultrasound left lower extremity:IMPRESSION: 1. Negative for left lower extremity deep vein thrombosis. 2. Expected left peroneal vein obscured. This document has been electronically signed by: Vazquez Omer MD on 08/28/2024 20:38:22 Discharge Plan Discharge Clinical Impression: Leg pain, left Patient Disposition: Home, Self-Care Instructions: Leg Pain (ED) Additional Instructions: The ultrasound of the left lower extremity was negative for a clot. You need to continue to follow up with your orthopedist. I am sending you with a prescription for meloxicam, perhaps this anti-inflammatory we will offer further relief from your symptoms. Prescriptions: New meloxicam 15 mg tablet 15 mg PO DAILY PRN (Reason: pain) Qty: 7 0RF No Action acetaminophen [Tylenol Extra Strength] 500 mg tablet 1,000 mg PO Q6H PRN ibuprofen 800 mg tablet 800 mg PO Q8H Print Language: Azeri
[2024-08-28 20:01] VITALS: BP 128/88; PULSE 98; RESP 16; TEMP 36.8; O2SAT 97
[2024-08-28 22:03] VITALS: BP 110/77; PULSE 105; RESP 16; TEMP 36.9; O2SAT 99
[2024-08-29 01:23] VITALS: BP 110/77; PULSE 105; RESP 16; TEMP 36.9; O2SAT 99
== END 2024-08-29 01:23 | disposition home or self-care (01) ==
PROVIDERS: Emergency Provider Emergency Medicine; PCP Internal Medicine
DX: M79.605 Pain in left leg (principal); R60.0 Localized edema
CPT/HCPCS: 93971; 99284

== ENCOUNTER → 2024-08-28 17:13 | Outpatient (BNV) | payer OTHER, SELFPAY | PROVIDERS: PCP Internal Medicine; Visit Provider Radiology Neuroradiology | DX: M25.562 Pain in left knee (principal) | CPT/HCPCS: 93971 ==